=== PATIENT | female | born 1990 | race Two or more races ===

== ENCOUNTER 2022-12-14 12:34 | Emergency (ER) | payer OTHER ==
[~2022-12-14] VITALS: Ht 162.6 cm; Wt 56.0 kg
[2022-12-14 16:14] VITALS: BP 117/73
[2022-12-14] MEDS ORDERED: guaiFENesin-DM 100/10mg/5ml SYR PO ONE (16:15)
[2022-12-14] MEDS ORDERED: PROM1SOL4 PO (16:16)
[2022-12-14] MEDS ORDERED: PRED20TA2 PO (16:16)
[2022-12-14] MEDS ORDERED: AZITTAB PO (16:16)
[2022-12-14] MEDS ORDERED: ALBU108A5 IN (16:16)
== END 2022-12-14 16:34 | disposition home or self-care (01) ==
LOC: ER 12:34
DX: J40 Bronchitis, not specified as acute or chronic (principal); Z20.822 Contact with and (suspected) exposure to COVID-19
CPT/HCPCS: 36415; 87426; 87804

== ENCOUNTER 2023-07-26 02:46 | Emergency (ER) | payer OTHER ==
[~2023-07-26] VITALS: Ht 162.6 cm; Wt 57.5 kg
[~2023-07-26 02:46] MED LIST: ALBU108A5 IN; AZITTAB PO; PRED20TA2 PO; PROM1SOL4 PO
[2023-07-26] MEDS ORDERED: guaiFENesin-DM 100/10mg/5ml SYR PO ONE (04:00)
[2023-07-26 04:48] VITALS: BP 110/69; PULSE 88; RESP 16; TEMP 97.9
[2023-07-26 07:01] VITALS: O2SAT 97
[2023-07-26] MEDS ORDERED: IBUP-1454 PO (07:14)
[2023-07-26] MEDS ORDERED: LEVO5TAB25 PO (07:14)
[2023-07-26] MEDS ORDERED: BENZ100C97 PO (07:14)
[2023-07-26 07:48] LABS: Rapid Influenza A Negative (Negative); Rapid Influenza B Negative (Negative)
[2023-07-26 08:07] LABS: COVID19 ANTIGEN SOFIA FIA NEGATIVE (NEGATIVE)
== END 2023-07-26 07:42 | disposition home or self-care (01) ==
LOC: ER 02:48
DX: J06.9 Acute upper respiratory infection, unspecified (principal); B97.89 Other viral agents as the cause of diseases classified elsewhere; R07.89 Other chest pain; Z20.822 Contact with and (suspected) exposure to COVID-19
CPT/HCPCS: 36415; 71045; 87426; 87804